=== PATIENT | female | born 1965 | race Caucasian/White ===

== ENCOUNTER → 2016-06-05 | Outpatient (CLI) | payer MEDICARE ==
[2016-05-27 11:12] VITALS: BP 140/92
[~2016-06-05] MED LIST: CARV6.25 PO; CETI10TA22 PO; DICL100G7 TP; DOXY100C2 PO; LOSA1TAB2 PO; OMEP20TA63 PO; WARF10TA PO
== END | disposition home or self-care (01) ==
LOC: PMGWOUND 10:30
PROVIDERS: ATTEND Emergency Medicine Undersea and Hyperbaric Medicine
DX: I87.312 Chronic venous hypertension (idiopathic) with ulcer of left lower extremity (principal); L97.221 Non-pressure chronic ulcer of left calf limited to breakdown of skin; L59.8 Other specified disorders of the skin and subcutaneous tissue related to radiation; M79.89 Other specified soft tissue disorders; I89.0 Lymphedema, not elsewhere classified; Z85.3 Personal history of malignant neoplasm of breast; Z85.43 Personal history of malignant neoplasm of ovary
CPT/HCPCS: 99214